=== PATIENT | female | born 1960 | race Caucasian/White ===

== ENCOUNTER 2020-11-04 15:47 | Emergency (ER) | payer MEDICAID ==
[~2020-11-04] VITALS: Ht 165.1 cm; Wt 90.9 kg
[~2020-11-04 15:47] MED LIST: ALBU18HF2 INH; ALBU8.5H8 IH; LISI20TA28 PO; LISI40TA13 PO
[2020-11-04 16:19] LABS: BASOPHILS # (AUTO) 0.1 X10'3 (0-0.2); BASOPHILS % (AUTO) 0.8 % (0-1); EOSINOPHILS # (AUTO) 0.2 X10'3 (0-0.9); EOSINOPHILS % (AUTO) 2.6 % (0-6); HEMATOCRIT 37.9 % (35.0-45.0); HEMOGLOBIN 12.5 g/dl (12.0-16.0); LYMPHOCYTES # (AUTO) 0.8 X10'3 (1.1-4.8); LYMPHOCYTES % (AUTO) 10.4 % (21-51); MEAN CORPUSCULAR HEMOGLOBIN 29.2 PG (27.0-31.0); MEAN CORPUSCULAR HGB CONC 32.9 g/dL (33.0-36.5); MEAN CORPUSCULAR VOLUME 88.6 FL (78-98); MEAN PLATELET VOLUME 8.2 FL (7.4-10.4); MONOCYTES # (AUTO) 0.4 X10'3 (0-0.9); MONOCYTES % (AUTO) 5.8 % (2-12); NEUTROPHILS # (AUTO) 5.8 X10'3 (1.8-7.7); NEUTROPHILS % (AUTO) 80.4 % (42-75); PLATELET COUNT 266 X10'3 (140-440); RED BLOOD COUNT 4.28 X10'6 (4.20-5.60); RED CELL DISTRIBUTION WIDTH 16.8 % (11.5-14.5); WHITE BLOOD COUNT 7.3 X10'3 (4.5-11.0)
[2020-11-04 16:28] LABS: ALANINE AMINOTRANSFERASE 22 U/L (12-78); ALBUMIN/GLOBULIN RATIO 1.1 (1.1-1.5); ALKALINE PHOSPHATASE 85 IU/L (46-116); ANION GAP 12 (8-16); ASPARTATE AMINO TRANSFERASE 18 U/L (10-37); BILIRUBIN,TOTAL 0.5 MG/DL (0.1-1.0); BLOOD UREA NITROGEN 14 MG/DL (7-18); BUN/CREATININE RATIO 17.5 (6.6-38.0); CHLORIDE 104 MMOL/L (99-107); GLUCOSE 103 MG/DL (70-104); POTASSIUM 4.1 MMOL/L (3.5-5.1); SODIUM 140 MMOL/L (135-145); TOTAL CARBON DIOXIDE 24.2 MMOL/L (24-32); TOTAL PROTEIN 7.7 G/DL (6.4-8.2); eGFR 73 ML/MIN
[2020-11-04 16:35] LABS: MAGNESIUM 2.2 MG/DL (1.5-2.4)
[2020-11-04 19:07] VITALS: BP 136/74
== END 2020-11-04 19:37 | disposition home or self-care (01) ==
LOC: ER 15:48
DX: R07.89 Other chest pain (principal); M79.603 Pain in arm, unspecified; R42 Dizziness and giddiness; I10 Essential (primary) hypertension; J44.9 Chronic obstructive pulmonary disease, unspecified; Z88.5 Allergy status to narcotic agent; Z79.899 Other long term (current) drug therapy
CPT/HCPCS: 36415; 71045; 80053; 83735; 83880; 84484; 85025; 93005; 99285

== ENCOUNTER 2023-03-13 18:25 | Emergency (ER) | payer MEDICAID ==
[~2023-03-13] VITALS: Ht 172.7 cm; Wt 95.5 kg
[~2023-03-13 18:25] MED LIST changes: +ALBU8.5H17 IH; -ALBU8.5H8 IH
[2023-03-13 18:34] VITALS: TEMP 98
[2023-03-13 18:46] LABS: WHITE BLOOD COUNT 5.4 X10'3 (4.5-11.0)
[2023-03-13 18:47] LABS: BASOPHILS % (AUTO) 0.9 % (0-1); EOSINOPHILS # (AUTO) 0.2 X10'3 (0-0.9); EOSINOPHILS % (AUTO) 2.8 % (0-6); HEMATOCRIT 35.4 % (35.0-45.0); HEMOGLOBIN 11.9 g/dl (12.0-16.0); LYMPHOCYTES # (AUTO) 0.9 X10'3 (1.1-4.8); LYMPHOCYTES % (AUTO) 16.2 % (21-51); MEAN CORPUSCULAR HEMOGLOBIN 32.3 PG (27.0-31.0); MEAN CORPUSCULAR HGB CONC 33.7 g/dL (33.0-36.5); MEAN CORPUSCULAR VOLUME 95.7 FL (78-98); MEAN PLATELET VOLUME 7.4 FL (7.4-10.4); MONOCYTES # (AUTO) 0.6 X10'3 (0-0.9); MONOCYTES % (AUTO) 10.3 % (2-12); NEUTROPHILS # (AUTO) 3.8 X10'3 (1.8-7.7); NEUTROPHILS % (AUTO) 69.8 % (42-75); PLATELET COUNT 270 X10'3 (140-440); RED CELL DISTRIBUTION WIDTH 17.4 % (11.5-14.5)
[2023-03-13 19:12] LABS: ALANINE AMINOTRANSFERASE 97 U/L (12-78); ALBUMIN 3.8 G/DL (3.4-5.0); ALKALINE PHOSPHATASE 98 IU/L (46-116); ANION GAP 10 (8-16); ASPARTATE AMINO TRANSFERASE 75 U/L (10-37); BILIRUBIN,TOTAL 0.4 MG/DL (0.1-1.0); BLOOD UREA NITROGEN 13 MG/DL (7-18); BUN/CREATININE RATIO 17.8 (10.0-20.0); CALCIUM 9.6 MG/DL (8.5-10.1); CHLORIDE 101 MMOL/L (99-107); CREATININE 0.73 MG/DL (0.40-0.90); GLUCOSE 103 MG/DL (70-104); POTASSIUM 3.9 MMOL/L (3.5-5.1); SODIUM 138 MMOL/L (135-145); TOTAL CARBON DIOXIDE 26.7 MMOL/L (24-32); TOTAL PROTEIN 7.6 G/DL (6.4-8.2); eCRCL 80 ML/MIN; eGFR 81 ML/MIN
[2023-03-13 19:14] LABS: PRO BRAIN NATRIURETIC PEPTIDE 168 PG/ML (0-125)
[2023-03-13] MEDS ORDERED: LISI40TA13 PO (22:00)
[2023-03-13] MEDS ORDERED: lisinopril 10 MG tablet PO ONE ×2 (22:00)
[2023-03-13 22:20] VITALS: BP 166/103; PULSE 64; RESP 16; O2SAT 98
== END 2023-03-13 22:42 | disposition home or self-care (01) ==
LOC: ER 18:26
DX: I10 Essential (primary) hypertension (principal); F41.9 Anxiety disorder, unspecified
CPT/HCPCS: 36415; 71045; 80053; 83880; 84484; 85025; 93005; 99285

== ENCOUNTER 2024-01-25 13:27 | Emergency (ER) | payer MEDICAID ==
[~2024-01-25] VITALS: Ht 172.7 cm; Wt 77.3 kg
[2024-01-25 13:31] VITALS: RESP 18; TEMP 97.7
[2024-01-25 14:17] LABS: BILIRUBIN,URINE NEGATIVE (Neg); CLARITY,URINE CLOUDY (Clear); COLOR,URINE YELLOW (Yellow); GLUCOSE, URINE NEGATIVE (Neg); KETONES,URINE TRACE mg/dl (Neg); LEUKOCYTE ESTERASE ,URINE SMALL (Neg); NITRITES, URINE NEGATIVE (Neg); OCCULT BLOOD,URINE NEGATIVE (Neg); PROTEIN,URINE NEGATIVE (Neg); UROBILINOGEN,URINE 0.2 E.U/dL (0.2-1.0)
[2024-01-25 14:20] LABS: UA COLLECTION TYPE VOIDED
[2024-01-25 14:27] LABS: SQUAMOUS EPITHELIAL CELL,UR MODERATE /LPF (FEW); STARCH,URINE MODERATE /HPF (NEGATIVE)
[2024-01-25 14:28] LABS: TRANSITIONAL EPI CELLS,URINE MANY /HPF
[2024-01-25 14:34] VITALS: BP 144/82; PULSE 61; O2SAT 98
[2024-01-25 14:49] LABS: BACTERIA,URINE 1+ /HPF (Neg); RBC,URINE 0-2 /HPF (0-2)
[2024-01-25] MEDS ORDERED: SULF1TAB49 PO (16:17)
== END 2024-01-25 16:37 | disposition home or self-care (01) ==
LOC: ER 13:27
DX: N10 Acute pyelonephritis (principal); I10 Essential (primary) hypertension; J44.9 Chronic obstructive pulmonary disease, unspecified; Z88.5 Allergy status to narcotic agent; Z79.899 Other long term (current) drug therapy
CPT/HCPCS: 81001; 87088; 99283

== ENCOUNTER 2024-10-19 15:06 | Observation (INO) | payer MEDICAID ==
[~2024-10-19] VITALS: Ht 172.7 cm; Wt 75.0 kg
--- NOTE | 2024-10-19 15:14 | ELECTROCARDIOGRAPH REPORT ---
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
[2024-10-19 15:32] LABS: BASOPHILS # (AUTO) 0.1 X10'3 (0-0.2); BASOPHILS % (AUTO) 1.3 % (0-1); EOSINOPHILS # (AUTO) 0.3 X10'3 (0-0.9); EOSINOPHILS % (AUTO) 4.9 % (0-6); HEMATOCRIT 35.6 % (35.0-45.0); HEMOGLOBIN 12.1 g/dl (12.0-16.0); LYMPHOCYTES # (AUTO) 1.1 X10'3 (1.1-4.8); LYMPHOCYTES % (AUTO) 18.1 % (21-51); MEAN CORPUSCULAR HEMOGLOBIN 32.4 PG (27.0-31.0); MEAN CORPUSCULAR HGB CONC 33.9 g/dL (33.0-36.5); MEAN CORPUSCULAR VOLUME 95.4 FL (78-98); MEAN PLATELET VOLUME 7.5 FL (7.4-10.4); MONOCYTES # (AUTO) 0.4 X10'3 (0-0.9); MONOCYTES % (AUTO) 6.6 % (2-12); NEUTROPHILS # (AUTO) 4.4 X10'3 (1.8-7.7); NEUTROPHILS % (AUTO) 69.1 % (42-75); PLATELET COUNT 295 X10'3 (140-440); RED BLOOD COUNT 3.73 X10'6 (4.20-5.60); WHITE BLOOD COUNT 6.3 X10'3 (4.5-11.0)
--- NOTE | 2024-10-19 15:35 | RADIOLOGY REPORT ---
EXAM: XR Chest, 1 View CLINICAL INDICATION: CP TECHNIQUE: Frontal view of the chest. COMPARISON: DI CHEST,SINGLE VIEW on DOS: 03/13/23, CHEST,SINGLE VIEW on DOS: 11/04/20 FINDINGS: LUNGS AND PLEURAL SPACES: Unremarkable. No consolidation. No pneumothorax. HEART: Unremarkable. No cardiomegaly. MEDIASTINUM: Unremarkable. Normal mediastinal contour. BONES/JOINTS: Unremarkable. No acute fracture. OTHER FINDINGS: . IMPRESSION: No acute cardiopulmonary process.
[2024-10-19 15:43] LABS: ALANINE AMINOTRANSFERASE 19 U/L (12-78); ALBUMIN 3.9 G/DL (3.4-5.0); ALBUMIN/GLOBULIN RATIO 1.2 (1.1-1.5); ALKALINE PHOSPHATASE 81 IU/L (46-116); ANION GAP 9 (8-16); ASPARTATE AMINO TRANSFERASE 18 U/L (10-37); BILIRUBIN,TOTAL 0.2 MG/DL (0.1-1.0); BLOOD UREA NITROGEN 13 MG/DL (7-18); BUN/CREATININE RATIO 16.3 (10.0-20.0); CHLORIDE 101 MMOL/L (99-107); GLUCOSE 96 MG/DL (70-104); SODIUM 138 MMOL/L (135-145); TOTAL CARBON DIOXIDE 28.1 MMOL/L (24-32); TOTAL PROTEIN 7.2 G/DL (6.4-8.2); eCRCL 72 ML/MIN; eGFR 72 ML/MIN
[2024-10-19 15:50] LABS: PRO BRAIN NATRIURETIC PEPTIDE 98 PG/ML (0-125)
--- NOTE | 2024-10-19 17:25 | Physician Documentation ---
History of Present Illness ~ Chief Complaint: Chest Pain Stated Complaint: CP Time Seen by MD: 17:16 Primary Medical Doctor: [facility] HPI 64-year-old female history of hypertension presenting for chest pain. She reports substernal chest pain that radiates to her neck and down her left arm ongoing the last hour and a half. Denies any shortness of breath no cough no ab dominal pain. No history of similar symptoms. She does report remote history of stress test 10 years prior Medication Reconciliation Allergies: Coded Allergies: codeine (Verified Allergy, Unknown, 01/29/09) Scheduled Albuterol Sulfate (Ventolin Hfa), 2 PUFFS INH Q4HPRN Lisinopril (Lisinopril), 20 MG PO DAILY, (Reported) Discontinued Medications Albuterol Sulfate (Proair Hfa), 2 PUFFS IH Q4H PRN for SOB or wheezing Discontinued Reason: patient no longer taking Lisinopril* (Lisinopril*), 1 TABLET PO DAILY Discontinued Reason: patient no longer taking Past Medical History Past Medical History: Hypertension, Asthma, COPD Past Surgical History: no surgical history Alcohol Use: None Drug Use: none Lives with: Spouse Lives In: Home Review of Systems All Other Systems at this time: Reviewed and Negative Respiratory: Denies: orthopnea, shortness of breath, SOB with exertion, SOB at rest, pain with breathing Physical Exam Vital Signs: Temperature: 98.6, Source: Temporal, Heart Rate: 61, Respiratory Rate: 15, BP: 164/79, Pulse Oximetry: 100, Weight: 75.000 General Appearance Well-appearing no distress No JVD Cardiac systolic ejection murmur Pulmonary clear to auscultation bilaterally Lower extremity no edema Progress Results/Orders Results/Orders Orders - KRYSTAL WELLS MD Chest,Single View (10/19/24 15:07) Monitor (10/19/24 15:07) Saline Lock (10/19/24 15:07) Oxygen (10/19/24 15:07) Hs Troponin I W Calculations (10/19/24 18:07) Page Hospitalist (10/19/24 17:42) Fill Out Med Reconciliation (10/19/24 17:42) Completed Orders - KRYSTAL WELLS MD Chest,Single View (10/19/24 15:07) Cbc/Diff (10/19/24 15:07) PBNP (10/19/24 15:07) Electrocardiogram (10/19/24 15:07) CMP (10/19/24 15:07) Hs Troponin I W Calculations (10/19/24 15:07) Hs Troponin I W Calculations (10/19/24 17:07) TSH (10/19/24 15:15) Vital Signs 10/19/24 10/19/24 15:08 17:26 Temp 98.6 Pulse 61 55 Resp 15 14 B/P (MAP) 164/79 129/82 (98) Pulse Ox 100 93 Laboratory Tests Test 10/19/24 15:15 10/19/24 17:13 White Blood Count 6.3 Red Blood Count 3.73 L Hemoglobin 12.1 Hematocrit 35.6 Mean Corpuscular Volume 95.4 Mean Corpuscular Hemoglobin 32.4 H Mean Corpuscular Hemoglobin Concent 33.9 Red Cell Distribution Width 13.0 Platelet Count 295 Mean Platelet Volume 7.5 Neutrophils (%) (Auto) 69.1 Lymphocytes (%) (Auto) 18.1 L Monocytes (%) (Auto) 6.6 Eosinophils (%) (Auto) 4.9 Basophils (%) (Auto) 1.3 H Neutrophils # (Auto) 4.4 Lymphocytes # (Auto) 1.1 Monocytes # (Auto) 0.4 Eosinophils # (Auto) 0.3 Basophils # (Auto) 0.1 CBC Comment Sodium Level 138 Potassium Level 4.0 Chloride Level 101 Carbon Dioxide Level 28.1 Anion Gap 9 Blood Urea Nitrogen 13 Creatinine 0.80 Estimated GFR/1.73 m2 72 BUN/Creatinine Ratio 16.3 Glucose Level 96 Calcium Level 9.0 Total Bilirubin 0.2 Aspartate Amino Transf (AST/SGOT) 18 Alanine Aminotransferase (ALT/SGPT) 19 Alkaline Phosphatase 81 Troponin I High Sensitivity 12 10 Pro-B-Type Natriuretic Peptide 98 Total Protein 7.2 Albumin 3.9 Globulin 3.3 Albumin/Globulin Ratio 1.2 Thyroid Stimulating Hormone (TSH) 0.75 Chemistry Comments Troponin I High Sens Percent Delta 16 Troponin I Hi Sens Absolute Change -2 EKG/XRAY/CT/US/VASC/MRI EKG : Additional Comment Independent interpretation of EKG time 3:11 p.m. indication chest pain normal sinus rhythm rate 56 normal axis normal intervals no ST elevation or depression. When compared to 03/2023 no acute change Chest X-Ray : Additional Comments Chest x-ray independently interpreted by myself shows no pneumothorax no consolidation normal cardiomediastinal silhouette Heart Score: Heart Score Response (Comments) Value History Highly Suspicious 2 EKG Normal 0 Age 45-64 1 Risk Factors 1 or 2 risk factors 1 Troponin Normal limit 0 Total 4 Medical Decision Making Additional Information Acute coronary syndrome, aortic dissection, pulmonary embolism Departure Disposition: ADMITTED INPATIENT Admitted to Inpatient Unit: to hospitalist Impression: Primary Impression: Moderate risk chest pain Additional Impression Text 64-year-old female history of hypertension presenting with left arm pain and left sided chest pain. EKG nonischemic. Troponin within normal limits. She had does have new murmur on exam. Given her new murmur ongoing chest pain and risk factors she was admitted to the hospitalist for further risk stratification Referrals: NO PRIMARY CARE PROVIDER (PCP) Signature Scribe Signature: na Attestation: KRYSTAL Acuna MD October 19, 2024 17:25
[2024-10-19] MEDS ORDERED: albuterol 2.5 MG/3 ML nebule NEB PRN (18:00)
[2024-10-19] MEDS ORDERED: regadenoson 0.4mg/5ml syringe IV PRN (18:15)
[2024-10-19] MEDS ORDERED: mag hydrox/Alum hydrox/simeth 30ml oral suspension PO PRN (18:15)
[2024-10-19] MEDS ORDERED: acetaminophen 325mg tablet PO PRN ×2 (18:15)
[2024-10-19] MEDS ORDERED: magnesium hydroxide 30ml (MOM) UD suspension PO PRN (18:15)
[2024-10-19] MEDS ORDERED: nitroGLYCERIN 0.4mg SUBLingual tab SL PRN (18:15)
[2024-10-19] MEDS ORDERED: metoprolol tartrate 1mg/ml inj IV PRN (18:15)
[2024-10-19] MEDS ORDERED: aminophylline 250mg/10ml inj. IV PRN (18:15)
[2024-10-19] MEDS ORDERED: morphine 2 MG/ML inj. syringe IV PRN (18:15)
--- NOTE | 2024-10-19 18:24 | HISTORY AND PHYSICAL ---
History & Physical Providers to CC ~ History of Present Illness Reason for Admit\Complaint: Shoulder Pain chest pain History of Present Illness This is a 64 years old female who comes in complaining of couple of days of pain; pain started in the left arm and from there moved into the left shoulder and then left side of the neck and left upper chest; patient denies any trauma to the arm before the onset; she stated that the pain is positional related to shoulder movement got worse significantly last night; patient stated that on presentation pain was 8/10; she states having associated shortness of breaths; had lightheadedness with the pain, some nausea associated; prior to these to three days and the onset of the left arm pain she has never had any chest pain; denies any exertional chest pain or shortness of breath; denies any cough; denies any orthopnea or PND; denies any fever or chills Allergies: Coded Allergies: codeine (Verified Allergy, Unknown, 01/29/09) Home Medications Home Medications Active Ventolin Hfa (Albuterol Sulfate) 18 Gm Hfa.aer.ad 2 Puffs INH Q4HPRN Reported Lisinopril 20 Mg Tablet 20 Mg PO DAILY Past Medical History Past Medical History She states having some bradycardia with a past couple of years Asthma Past Surgical History Surgical History Comment None Past Social History Social History Comment Family history-dad from cancer Social history-vapes occasionally; no other forms of tobacco and no alcohol or drug use ROS ROS A 10 point review of system was done with pertinent positives and negatives in the history of present illness Exam Vitals: Vital Signs Date Time Temp Pulse Resp B/P (MAP) Pulse Ox O2 Delivery O2 Flow Rate FiO2 10/19/24 17:26 55 14 129/82 (98) 93 10/19/24 15:08 98.6 General: Patient is in bed in mild anxiety HEENT normal oral mucosa no JVD no palpable firm palpable thyroid eyes with PERRLA Lungs with normal bilateral entry no crackles no wheezing Normal rate and rhythm S1-S2 no murmurs Abdomen is soft nontender bowel sounds are present Extremities no edema plus two pulses Awake alert motor and sensory intact Diagnostic Data Last Recorded Lab Results: 10/19/24 1515 10/19/24 1515 Diagnostic Data: EKG with sinus bradycardia no ST-T changes Advance Care Planning Advanced Care plannin - 30 Minutes Additional Plan 64 years old female with no significant past medical history who presents to the hospital with two days of left arm pain that radiated into the left shoulder left side of the neck and left upper chest; associated with some shortness of breath nausea and lightheadedness; EKG with sinus bradycardia; cardiac enzymes negative so far; patient will have a Lexiscan stress test in the morning History of asthma stable Sinus bradycardia monitor Per discussion with the patient she is a full code; patient was placed under observation further decisions regarding inpatient hospitalizations to be made based on her clinical evaluation Date of Service: October 19, 2024 Billing Provider: JAREK THOMPSON MD Common Visit Codes: [id number] INP/OBS CARE (HIGH) JAREK THOMPSON MD October 19, 2024 18:24
[2024-10-19] MEDS: morphine 2 MG/ML inj. syringe IV PRN (18:53)
[2024-10-19 18:54] LABS: THYROID STIMULATING HORMONE 0.75 ulU/ml (0.34-4.50)
[2024-10-19] MEDS: ondansetron/PF 4mg/2ml inj IV PRN (18:54)
[2024-10-19] MEDS: docusate sod 100mg capsule PO SCH (20:23)
[2024-10-19] MEDS: HYDROcodone/acetaminophen 5mg/325mg tablet PO PRN (20:35)
[2024-10-19] MEDS: nicotine 14mg patch - 24hr TD ONE (21:25)
[2024-10-19 23:00] VITALS: BP 132/60; PULSE 55; RESP 20; TEMP 97.3; O2SAT 98
[2024-10-20] MEDS ORDERED: lisinopril 20mg tablet PO SCH (08:00)
== END 2024-10-20 00:38 | disposition left against medical advice (07) ==
LOC: ER 15:07 → ED HOLD 18:18 → EDBEDREQ 22:11 → PCU 3S 22:47
PROVIDERS: ADMIT Internal Medicine; ATTEND Internal Medicine
DX: R07.89 Other chest pain (principal); I10 Essential (primary) hypertension; M25.512 Pain in left shoulder; M79.602 Pain in left arm; R00.1 Bradycardia, unspecified; J45.909 Unspecified asthma, uncomplicated; M54.2 Cervicalgia; R60.1 Generalized edema; Z88.5 Allergy status to narcotic agent; Z79.899 Other long term (current) drug therapy; Z98.890 Other specified postprocedural states
CPT/HCPCS: 36415; 71045; 80053; 83880; 84443; 84484; 85025; 93005; 96374; 96375; 99285; G0378; J2270; J2405